=== PATIENT | female | born 1965 | race Caucasian/White ===

== ENCOUNTER 2021-11-27 17:18 | Emergency (ER) | payer SELFPAY ==
[~2021-11-27] VITALS: Ht 170.2 cm; Wt 129.3 kg
[~2021-11-27 17:18] MED LIST: ALB0.5V; KETO-22 PO; LEVO500T69 PO
[2021-11-27] MEDS ORDERED: LACTATED RINGERS 1,000 ML IV ONE (17:25)
[2021-11-27] MEDS ORDERED: ONDANSETRON 4 MG/2 ML (SDV) Z0FRAN ONE (17:25)
[2021-11-27] MEDS ORDERED: LACTATED RINGERS 1,000 ML IV STA (17:27)
[2021-11-27] MEDS ORDERED: ONDANSETRON 4 MG/2 ML (SDV) Z0FRAN IVP ONE (17:30)
[2021-11-27 17:35] LABS: BASOPHILS # (AUTO) 0.1 10^3/uL (0.0-0.1); BASOPHILS % (AUTO) 1 % (0-10); EOSINOPHILS # (AUTO) 0.1 10^3/uL (0.0-0.3); EOSINOPHILS % (AUTO) 1 % (0-10); HEMATOCRIT 44 % (35-52); HEMOGLOBIN 14.3 g/dL (11.5-16.0); LYMPHOCYTES # (AUTO) 5.8 10^3/uL (1.0-4.0); LYMPHOCYTES % (AUTO) 38 % (12-44); MEAN CORPUSCULAR HEMOGLOBIN 29 pg (25-34); MEAN CORPUSCULAR HGB CONC 32 g/dL (32-36); MEAN CORPUSCULAR VOLUME 90 fL (80-99); MEAN PLATELET VOLUME 10.9 fL (9.0-12.2); MONOCYTES # (AUTO) 0.8 10^3/uL (0.0-1.0); MONOCYTES % (AUTO) 5 % (0-12); NEUTROPHILS # (AUTO) 8.3 10^3/uL (1.8-7.8); NEUTROPHILS % (AUTO) 55 % (42-75); PLATELET COUNT 303 10^3/uL (130-400); WHITE BLOOD COUNT 15.1 10^3/uL (4.3-11.0)
--- NOTE | 2021-11-27 17:35 | ED General ---
General Chief Complaint: Overdose Stated Complaint: OD Nursing Triage Note: PT BROUGHT IN BY [facility] FROM HOME FOR OVERDOSE. PT GIVEN 4MG NARCAN. PT WAS FOUND DOWN BY FAMILY. PT WAS BLUE AND UNRESPONSIVE ON EMS ARRIVAL. PT IS ALERT AND UNAWARE OF WHAT HAPPENED. Source of Information: Patient Exam Limitations: No Limitations (ROMY OGLESBY MD) History of Present Illness Date Seen by Provider: Nov 27, 2021 Time Seen by Provider: 17:19 Initial Comments Here with report of possible overdose. Came from home. Patient was found to be down by family unresponsive. EMS reported that she was blue/purple. They did establish IV as she had agonal respirations and administer 4 mg of Narcan in total and she has woke up. She is sweating currently. She does admit to using cocaine. Another family member of hers was seen today for the very same symptoms and was found to have used cocaine laced with fentanyl likely. She is exhibiting the same signs. She states that she believes she snorted it. Did have an episode of vomiting after arrival here. She is still a bit confused but answering simple questions and following simple commands. Moves all extremities without difficulty. No respiratory distress currently. Timing/Duration: 1/2 Hour Severity: Severe Associated Systoms: Diaphoresis, Nausea/Vomiting, Other (Unresponsiveness responding to Narcan) (ROMY OGLESBY MD) Allergies and Home Medications Allergies Coded Allergies: No Known Drug Allergies (Unverified , 05/25/10) Patient Home Medication List Home Medication List Reviewed: Yes (ROMY OGLESBY MD) Albuterol (Proventil 0.5% Rt) 2.5 Mg/0.5 Ml Nebu, PRN, (Reported) Entered as Reported by: KISHAN SMART on 01/14/10 1122 Ketorolac Tromethamine (Toradol) 10 Mg Tablet, 10 MG PO Q6-8 HOURS PRN Prescribed by: LUCA GAGE on 05/25/10 162 Levofloxacin (Levaquin 500 Mg) 500 Mg Tab, 1 EACH PO DAILY Prescribed by: LUCA GAGE on 05/25/10 162 Review of Systems Review of Systems Constitutional: see HPI; No chills, No fever EENTM: No nose congestion, No throat pain Respiratory: see HPI; No cough Cardiovascular: No chest pain, No edema Gastrointestinal: nausea, vomiting Musculoskeletal: No back pain, No muscle pain Psychiatric/Neurological: Denies Headache, Denies Weakness (ROMY OGLESBY MD) All Other Systems Reviewed Negative Unless Noted: Yes (ROMY OGLESBY MD) Past Juozkyf-Tuhtxv-Dehsmv Hx Patient Social History Tobacco Use?: Yes Tobacco type used: Cigarettes Smoking Status: Current Everyday Smoker Use of E-Cig and/or Vaping dev: No Substance use?: Yes Substance type: Amphetamines, Methamphetamine, Opiates/Opioids Additional substance use comme: COCAINE Alcohol Use?: No Pt feels they are or have been: No (ROMY OGLESBY MD) Past Medical History Surgeries: Yes Section, Gallbladder Respiratory: Yes Asthma Cardiac: Yes Hypertension (ROMY OGLESBY MD) Family Medical History Reviewed Nursing Family Hx (ROMY OGLESBY MD) No Pertinent Family Hx (ROMY OGLESBY MD) Physical Exam Vital Signs Vital Signs - First Documented 11/27/21 17:19 Pulse 123 Resp 20 B/P (MAP) 176/118 (137) Pulse Ox 96 O2 Delivery Room Air (MERARI,LUCA K DO) Vital Signs Capillary Refill : Less Than 3 Seconds (ROMY OGLESBY MD) Height, Weight, BMI Height: '" Weight: lbs. oz. kg; 44.00 BMI Method:Stated General Appearance: Mild Distress (Vomiting, confusion and fear about events), Obese HEENT: PERRL/EOMI, Pharynx Normal Neck: Non Tender, Supple Respiratory: Lungs Clear, Normal Breath Sounds Cardiovascular: No Murmur, Tachycardia Gastrointestinal: Non Tender, Soft Back: Normal Inspection, No CVA Tenderness, No Vertebral Tenderness Extremity: Normal Range of Motion, Non Tender Neurologic/Psychiatric: Alert, Other (Oriented to self and place and has some confusion to situation it appears.) Skin: Diaphoresis, Pallor (ROMY OGLESBY MD) Progress/Results/Core Measures Suspected Sepsis SIRS Temperature: Pulse: 123 Respiratory Rate: 20 Laboratory Tests 11/27/21 17:28: White Blood Count 15.1H Blood Pressure 176 /118 Mean: 137 Laboratory Tests 11/27/21 17:28: Creatinine 0.82, Platelet Count 303, Total Bilirubin 0.5 (ROMY OGLESBY MD) Results/Orders Lab Results Laboratory Tests Test 11/27/21 17:28 11/27/21 18:48 Range/Units White Blood Count 15.1 H 4.3-11.0 10^3/uL Red Blood Count 4.90 3.80-5.11 10^6/uL Hemoglobin 14.3 11.5-16.0 g/dL Hematocrit 44 35-52 % Mean Corpuscular Volume 90 80-99 fL Mean Corpuscular Hemoglobin 29 25-34 pg Mean Corpuscular Hemoglobin Concent 32 32-36 g/dL Red Cell Distribution Width 13.8 10.0-14.5 % Platelet Count 303 130-400 10^3/uL Mean Platelet Volume 10.9 9.0-12.2 fL Immature Granulocyte % (Auto) 0 % Neutrophils (%) (Auto) 55 42-75 % Lymphocytes (%) (Auto) 38 12-44 % Monocytes (%) (Auto) 5 0-12 % Eosinophils (%) (Auto) 1 0-10 % Basophils (%) (Auto) 1 0-10 % Neutrophils # (Auto) 8.3 H 1.8-7.8 10^3/uL Lymphocytes # (Auto) 5.8 H 1.0-4.0 10^3/uL Monocytes # (Auto) 0.8 0.0-1.0 10^3/uL Eosinophils # (Auto) 0.1 0.0-0.3 10^3/uL Basophils # (Auto) 0.1 0.0-0.1 10^3/uL Immature Granulocyte # (Auto) 0.1 0.0-0.1 10^3/uL Neutrophils % (Manual) 55 % Lymphocytes % (Manual) 39 % Monocytes % (Manual) 5 % Eosinophils % (Manual) 1 % Blood Morphology Comment NORMAL Sodium Level 139 135-145 MMOL/L Potassium Level 3.9 3.6-5.0 MMOL/L Chloride Level 106 98-107 MMOL/L Carbon Dioxide Level 20 L 21-32 MMOL/L Anion Gap 13 5-14 MMOL/L Blood Urea Nitrogen 12 7-18 MG/DL Creatinine 0.82 0.60-1.30 MG/DL Estimat Glomerular Filtration Rate 85 BUN/Creatinine Ratio 15 Glucose Level 165 H 70-105 MG/DL Calcium Level 9.8 8.5-10.1 MG/DL Corrected Calcium 9.6 8.5-10.1 MG/DL Magnesium Level 2.0 1.6-2.4 MG/DL Total Bilirubin 0.5 0.1-1.0 MG/DL Aspartate Amino Transf (AST/SGOT) 21 5-34 U/L Alanine Aminotransferase (ALT/SGPT) 27 0-55 U/L Alkaline Phosphatase 61 40-136 U/L Troponin I < 0.028 <0.028 NG/ML Total Protein 7.6 6.4-8.2 GM/DL Albumin 4.3 3.2-4.5 GM/DL Salicylates Level < 5.0 L 5.0-20.0 MG/DL Acetaminophen Level < 10 L 10-30 UG/ML Serum Alcohol < 10 <10 MG/DL Urine Color YELLOW Urine Clarity CLEAR Urine pH 6.0 5-9 Urine Specific [place] 1.025 H 1.016-1.022 Urine Protein 2+ H NEGATIVE Urine Glucose (UA) NEGATIVE NEGATIVE Urine Ketones NEGATIVE NEGATIVE Urine Nitrite NEGATIVE NEGATIVE Urine Bilirubin NEGATIVE NEGATIVE Urine Urobilinogen 0.2 < = 1.0 MG/DL Urine Leukocyte Esterase NEGATIVE NEGATIVE Urine RBC (Auto) TRACE-I H NEGATIVE Urine RBC 0-2 /HPF Urine WBC RARE /HPF Urine Crystals NONE /LPF Urine Bacteria TRACE /HPF Urine Casts NONE /LPF Urine Mucus SMALL H /LPF Urine Culture Indicated NO Urine Opiates Screen NEGATIVE NEGATIVE Urine Oxycodone Screen NEGATIVE NEGATIVE Urine Methadone Screen NEGATIVE NEGATIVE Urine Propoxyphene Screen NEGATIVE NEGATIVE Urine Barbiturates Screen NEGATIVE NEGATIVE Ur Tricyclic Antidepressants Screen NEGATIVE NEGATIVE Urine Phencyclidine Screen NEGATIVE NEGATIVE Urine Amphetamines Screen POSITIVE H NEGATIVE Urine Methamphetamines Screen POSITIVE H NEGATIVE Urine Benzodiazepines Screen NEGATIVE NEGATIVE Urine Cocaine Screen NEGATIVE NEGATIVE Urine Cannabinoids Screen NEGATIVE NEGATIVE (LUCA GAGE DO) My Orders Orders - LUCA GAGE DO Ed Iv/Invasive Line Start (11/27/21 18:18) Ns Iv 1000 Ml (Sodium Chloride 0.9%) (11/27/21 18:30) (LUCA GAGE DO) Medications Given in ED Current Medications Medications Dose Ordered Sig/Kianna Route Start Time Stop Time Status Last Admin Dose Admin Ondansetron HCl 4 mg ONCE ONCE IVP 11/27/21 17:30 11/27/21 17:31 DC 11/27/21 17:28 4 MG (LUCA GAGE DO) Vital Signs/I&O 11/27/21 11/27/21 17:19 20:11 Pulse 123 93 Resp 20 20 B/P (MAP) 176/118 (137) 170/100 Pulse Ox 96 97 O2 Delivery Room Air Room Air (LUCA GGAE DO) Vital Signs/I&O Capillary Refill : Less Than 3 Seconds (ROMY OGLESBY MD) Blood Pressure Mean: 137 Progress Note : Progress Note Seen and evaluated. IV by EMS. LR 1 L bolus, Zofran 4 mg IV, labs and EKG ordered including UA and UDS. Does have appearance of narcotic overdose and will need monitoring. Monitor patient. 175: Care transferred to Dr. Gage pending labs. (ROMY OGLESBY MD) Progress Note : Progress Note 1800--ASSUMED CARE OF PT AT SHIFT CHANGE. PT IS RESTING QUIETLY AT THIS TIME, HAS NO COMPLAINTS. VITALS STABLE. 1944--PT CONTINUES TO REST QUIETLY, HAS NO COMPLAINTS AT THIS TIME. VITALS STABLE., PT HAS BEEN UP TO BEDSIDE COMMODE AND BACK ONTO ER CART WITHOUT DIFFICULTY. (LUCA GAGE DO) ECG Initial ECG Impression Date: Nov 27, 2021 Initial ECG Impression Time: 17:32 Initial ECG Rate: 102 Initial ECG Rhythm: S.Tach Comment Sinus rhythm with normal axis. No evidence of ST elevation [place]. No previous available for comparison. Interpreted by me. (ROMY OGLESBY MD) Departure Impression Primary Impression: Drug overdose Additional Impression: Illicit drug use Disposition: 01 HOME, SELF-CARE Condition: Stable Departure-Patient Inst. Decision time for Depature: 20:00 (LUCA GAGE DO) Referrals: UNKNOWN (PCP/Family) Primary Care Physician Patient Instructions: ALCOHOL AND SUBSTANCE ABUSE, Drug Abuse and Drug Addiction (DC), Drug Abuse Treatment Add. Discharge Instructions: NO DRUGS!!!! FOLLOW UP WITH YOUR DR NEXT WEEK FOR FURTHER CARE ENCOURAGE YOU TO SEEK DRUG ABUSE TREATMENT--FACILITIES ARE LISTED IN YOUR DISCHARGE INSTRUCTIONS All discharge instructions reviewed with patient and/or family. Voiced understanding. ROMY OGLESBY MD Nov 27, 2021 17:35 LUCA GAGE DO Nov 27, 2021 18:18
[2021-11-27 17:43] LABS: CHLORIDE 106 MMOL/L (98-107); POTASSIUM 3.9 MMOL/L (3.6-5.0); SODIUM 139 MMOL/L (135-145)
[2021-11-27 17:44] LABS: ALBUMIN 4.3 GM/DL (3.2-4.5)
[2021-11-27 17:45] LABS: CALCIUM 9.8 MG/DL (8.5-10.1)
[2021-11-27 17:46] LABS: GLUCOSE 165 MG/DL (70-105); TOTAL PROTEIN 7.6 GM/DL (6.4-8.2)
[2021-11-27 17:47] LABS: CARBON DIOXIDE 20 MMOL/L (21-32)
[2021-11-27 17:48] LABS: BILIRUBIN,TOTAL 0.5 MG/DL (0.1-1.0)
[2021-11-27 17:50] LABS: ALKALINE PHOSPHATASE 61 U/L (40-136); CREATININE SERUM 0.82 MG/DL (0.60-1.30); GFR ESTIMATED 85
[2021-11-27 17:51] LABS: BUN/CREATININE RATIO 15
[2021-11-27 17:52] LABS: ACETAMINOPHEN < 10 UG/ML (10-30)
[2021-11-27 17:53] LABS: ALANINE AMINOTRANSFERASE 27 U/L (0-55); SALICYLATE < 5.0 MG/DL (5.0-20.0)
[2021-11-27 18:00] LABS: EOSINOPHILS % (MANUAL) 1 %; LYMPHOCYTES % (MANUAL) 39 %; MONOCYTES % (MANUAL) 5 %; NEUTROPHILS % (MANUAL) 55 %; RBC MORPH NORMAL
[2021-11-27] MEDS ORDERED: NS IV 1000 ML 1,000 ML IV SCH (18:30)
[2021-11-27 18:56] LABS: BILIRUBIN,URINE NEGATIVE (NEGATIVE); CLARITY,URINE CLEAR; COLOR,URINE YELLOW; GLUCOSE, URINE (UA) NEGATIVE (NEGATIVE); KETONES,URINE NEGATIVE (NEGATIVE); LEUKOCYTE ESTERASE ,URINE NEGATIVE (NEGATIVE); NITRITE,URINE NEGATIVE (NEGATIVE); PROTEIN,URINE 2+ (NEGATIVE)
[2021-11-27 19:16] LABS: BACTERIA,URINE TRACE /HPF; RBC,URINE 0-2 /HPF; WBC,URINE RARE /HPF
[2021-11-27 19:18] LABS: AMPHETAMINE SCREEN, URINE POSITIVE (NEGATIVE); BARBITURATE SCREEN URINE NEGATIVE (NEGATIVE); BENZODIAZEPINES SCREEN URINE NEGATIVE (NEGATIVE); CANNABINOID SCREEN, URINE NEGATIVE (NEGATIVE); COCAINE SCREEN URINE NEGATIVE (NEGATIVE); METHADONE STAT NEGATIVE (NEGATIVE); METHAMPHETAMINE SCREEN URINE S POSITIVE (NEGATIVE); OPIATE SCREEN URINE NEGATIVE (NEGATIVE); OXYCODONE STAT NEGATIVE (NEGATIVE); PROPOXYPHENE STAT NEGATIVE (NEGATIVE); TRICYCLIC ANTIDEPRESSANTS SCRE NEGATIVE (NEGATIVE)
[2021-11-27 20:11] VITALS: BP 170/100
== END 2021-11-27 20:11 | disposition home or self-care (01) ==
LOC: EDUNIT# 17:18 → ER 17:18
DX: T50.7X1A Poisoning by analeptics and opioid receptor antagonists, accidental (unintentional), initial encounter (principal); F14.90 Cocaine use, unspecified, uncomplicated; E66.9 Obesity, unspecified; F17.210 Nicotine dependence, cigarettes, uncomplicated
CPT/HCPCS: 80053; 80306; 81000; 83735; 84484; 85007; 85027; 93041; 99284; G0480 ×3; 36415; 80320; 80329; 93005

== ENCOUNTER 2022-05-15 04:33 | Inpatient (IN) | payer SELFPAY ==
[~2022-05-15] VITALS: Ht 170 cm; Wt 120.2 kg
[~2022-05-15 04:33] MED LIST changes: -ALB0.5V; +ALB0.5V IH
[2022-05-15 04:40] VITALS: BP 130/92
--- NOTE | 2022-05-15 04:42 | ED General ---
General Stated Complaint: OD History of Present Illness Date Seen by Provider: May 15, 2022 Time Seen by Provider: 04:32 Initial Comments 26-year-old female is brought in by EMS with complaints of meth usage and prazosin overdose. Patient has a prescription from her PCP for results and 2 mg daily, and was dispensed approximately 360 tablets. Patient states that she took injected meth and then wanted something to help her sleep, and since she took 2 or 3 handfuls of prazosin. She is unsure exactly how much. Patient is alert and oriented x3 and able to converse and follow commands without any issues. Patient's mouth is green from the prazosin tablets. Denies dizziness, chest pain, palpitations, abdominal pain, nausea and vomiting. Patient is denying suicidal ideation. Allergies and Home Medications Allergies Coded Allergies: No Known Drug Allergies (Unverified , 05/25/10) Patient Home Medication List Home Medication List Reviewed: Yes Albuterol (Proventil 0.5% Rt) 2.5 Mg/0.5 Ml Nebu, PRN, (Reported) Entered as Reported by: KISHAN SMART on 01/14/10 1122 Ketorolac Tromethamine (Toradol) 10 Mg Tablet, 10 MG PO Q6-8 HOURS PRN Prescribed by: LUCA GAGE on 05/25/10 1620 Levofloxacin (Levaquin 500 Mg) 500 Mg Tab, 1 EACH PO DAILY Prescribed by: LUCA GAGE on 05/25/10 1620 Review of Systems Review of Systems Constitutional: no symptoms reported EENTM: no symptoms reported Respiratory: no symptoms reported Cardiovascular: no symptoms reported Gastrointestinal: no symptoms reported Genitourinary: no symptoms reported Musculoskeletal: no symptoms reported Skin: other (green color to mouth and lips from green prazosin) Psychiatric/Neurological: Emotional Problems, Other (drug abuse and overdose, and possible suicidal ideation) Hematologic/Lymphatic: No Symptoms Reported Immunological/Allergic: no symptoms reported Physical Exam Vital Signs Capillary Refill : Height, Weight, BMI Height: '" Weight: lbs. oz. kg; BMI Method: General Appearance: No Apparent Distress, Obese HEENT: PERRL/EOMI Neck: Full Range of Motion, Normal Inspection Respiratory: Chest Non Tender, Lungs Clear, Normal Breath Sounds, No Accessory Muscle Use, No Respiratory Distress Cardiovascular: Regular Rate, Rhythm Gastrointestinal: Normal Bowel Sounds, Non Tender, Soft Extremity: Normal Inspection Neurologic/Psychiatric: Alert, Oriented x3, No Motor/Sensory Deficits Skin: Normal Color Progress/Results/Core Measures Suspected Sepsis SIRS Temperature: Pulse: Respiratory Rate: Laboratory Tests 05/15/22 04:52: White Blood Count 6.8 Blood Pressure / Mean: Laboratory Tests 05/15/22 04:52: Creatinine 0.83, Platelet Count 242, Total Bilirubin 0.9 Results/Orders Lab Results Laboratory Tests Test 05/15/22 04:52 Range/Units White Blood Count 6.8 4.3-11.0 10^3/uL Red Blood Count 4.62 3.80-5.11 10^6/uL Hemoglobin 14.0 11.5-16.0 g/dL Hematocrit 42 35-52 % Mean Corpuscular Volume 90 80-99 fL Mean Corpuscular Hemoglobin 30 25-34 pg Mean Corpuscular Hemoglobin Concent 34 32-36 g/dL Red Cell Distribution Width 13.1 10.0-14.5 % Platelet Count 242 130-400 10^3/uL Mean Platelet Volume 10.9 9.0-12.2 fL Immature Granulocyte % (Auto) 0 % Neutrophils (%) (Auto) 56 42-75 % Lymphocytes (%) (Auto) 32 12-44 % Monocytes (%) (Auto) 8 0-12 % Eosinophils (%) (Auto) 3 0-10 % Basophils (%) (Auto) 1 0-10 % Neutrophils # (Auto) 3.8 1.8-7.8 10^3/uL Lymphocytes # (Auto) 2.2 1.0-4.0 10^3/uL Monocytes # (Auto) 0.6 0.0-1.0 10^3/uL Eosinophils # (Auto) 0.2 0.0-0.3 10^3/uL Basophils # (Auto) 0.0 0.0-0.1 10^3/uL Immature Granulocyte # (Auto) 0.0 0.0-0.1 10^3/uL Urine Color YELLOW Urine Clarity CLOUDY Urine pH 5.5 5-9 Urine Specific [place] >=1.030 1.016-1.022 Urine Protein TRACE H NEGATIVE Urine Glucose (UA) NEGATIVE NEGATIVE Urine Ketones NEGATIVE NEGATIVE Urine Nitrite NEGATIVE NEGATIVE Urine Bilirubin NEGATIVE NEGATIVE Urine Urobilinogen 0.2 < = 1.0 MG/DL Urine Leukocyte Esterase 1+ H NEGATIVE Urine RBC (Auto) TRACE-I H NEGATIVE Urine RBC NONE /HPF Urine WBC 25-50 H /HPF Urine Squamous Epithelial Cells >50 H /HPF Urine Crystals NONE /LPF Urine Bacteria LARGE H /HPF Urine Casts NONE /LPF Urine Mucus NEGATIVE /LPF Urine Culture Indicated YES Sodium Level 141 135-145 MMOL/L Potassium Level 4.0 3.6-5.0 MMOL/L Chloride Level 103 98-107 MMOL/L Carbon Dioxide Level 24 21-32 MMOL/L Anion Gap 14 5-14 MMOL/L Blood Urea Nitrogen 9 7-18 MG/DL Creatinine 0.83 0.60-1.30 MG/DL Estimat Glomerular Filtration Rate 83 BUN/Creatinine Ratio 11 Glucose Level 146 H 70-105 MG/DL Calcium Level 9.4 8.5-10.1 MG/DL Corrected Calcium 9.2 8.5-10.1 MG/DL Magnesium Level 1.6 1.6-2.4 MG/DL Total Bilirubin 0.9 0.1-1.0 MG/DL Aspartate Amino Transf (AST/SGOT) 19 5-34 U/L Alanine Aminotransferase (ALT/SGPT) 23 0-55 U/L Alkaline Phosphatase 65 40-136 U/L Total Creatine Kinase 258 H 29-168 U/L Total Protein 7.6 6.4-8.2 GM/DL Albumin 4.2 3.2-4.5 GM/DL Urine Opiates Screen NEGATIVE NEGATIVE Urine Oxycodone Screen NEGATIVE NEGATIVE Urine Methadone Screen NEGATIVE NEGATIVE Urine Propoxyphene Screen NEGATIVE NEGATIVE Urine Barbiturates Screen NEGATIVE NEGATIVE Ur Tricyclic Antidepressants Screen NEGATIVE NEGATIVE Urine Phencyclidine Screen NEGATIVE NEGATIVE Urine Amphetamines Screen POSITIVE H NEGATIVE Urine Methamphetamines Screen POSITIVE H NEGATIVE Urine Benzodiazepines Screen NEGATIVE NEGATIVE Urine Cocaine Screen NEGATIVE NEGATIVE Urine Cannabinoids Screen POSITIVE H NEGATIVE Serum Alcohol < 10 <10 MG/DL My Orders Orders - MURALI SNEED MD Ed Iv/Invasive Line Start (05/15/22 04:46) Ekg Tracing (05/15/22 04:46) Monitor-Rhythm Ecg Trace Only (05/15/22 04:46) Charcoal Activated Aqueous (Actidose Aqu (05/15/22 05:00) Ondansetron Injection (Zofran Injectio (05/15/22 05:00) Acetaminophen (05/15/22 04:49) Alcohol (05/15/22 04:49) Cbc With Automated Diff (05/15/22 04:49) Comprehensive Metabolic Panel (05/15/22 04:49) Creatine Kinase (05/15/22 04:49) Drug Screen Stat (Urine) (05/15/22 04:49) Magnesium (05/15/22 04:49) Salicylate (05/15/22 04:49) Ua Culture If Indicated (05/15/22 04:49) Ed Iv/Invasive Line Start (05/15/22 04:50) Ns Iv 1000 Ml (Sodium Chloride 0.9%) (05/15/22 04:50) Urine Culture (05/15/22 04:52) Ed Admission (Communication) (05/15/22 05:32) Medications Given in ED Current Medications Medications Dose Ordered Sig/Kianna Route Start Time Stop Time Status Last Admin Dose Admin Charcoal 50 gm ONCE ONCE PO 05/15/22 05:00 05/15/22 05:01 DC 05/15/22 05:15 50 GM Ondansetron HCl 4 mg ONCE ONCE IVP 05/15/22 05:00 05/15/22 05:01 DC 05/15/22 05:19 4 MG Vital Signs/I&O Capillary Refill : Progress Note : Progress Note 1. PRAZOSIN OVERDOSE: - EKG NSR, unremarkable - Bottle contains 65 tablets , ut pt states there are 2 other bottles of Prazo - Labs: unremarkable - Discussed with Poison ControlRosalinda, and advised activated charcoal if alert and awake, monitoring for hypotension and neurological status, and EKG changes and treating accordingly - Activated charcoal given in ER - NS IVF - WIll admit to ICU for E-ICU consult 2. METHAMPHETAMINE & MARIJUANA ABUSE: - UDS: positive for methamphetamine and marijuana - s. acetaminophen/ salicylates: neg 3. ACUTE CYSTITIS WITH HEMATURIA: - UA is positive for leukocyte esterase, RBCs, bacteria, WBC -Ceftriaxone 1 g IV stat Departure Communication (Admissions) Time/Spoke to Admitting Phy: 00:[address] Mckinney and admit to ICU Time/Spoke to Consulting Phy: 00:35 Informed E-ICU Impression Primary Impression: Drug overdose Qualified Codes: T50.904A - Poisoning by unspecified drugs, medicaments and biological substances, undetermined, initial encounter Additional Impressions: Methamphetamine abuse Marijuana abuse Acute cystitis with hematuria Disposition: 30 STILL A PATIENT Condition: Stable Admissions Decision to Admit Reason: Admit from ER (General) Decision to Admit/Date: May 15, 2022 Time/Decision to Admit Time: 00:15 MURALI SNEED MD May 15, 2022 04:41
[2022-05-15] MEDS ORDERED: NS IV 1000 ML 1,000 ML IV STA (04:50)
[2022-05-15 04:58] LABS: BASOPHILS % (AUTO) 1 % (0-10); EOSINOPHILS # (AUTO) 0.2 10^3/uL (0.0-0.3); EOSINOPHILS % (AUTO) 3 % (0-10); HEMATOCRIT 42 % (35-52); LYMPHOCYTES # (AUTO) 2.2 10^3/uL (1.0-4.0); LYMPHOCYTES % (AUTO) 32 % (12-44); MEAN CORPUSCULAR HEMOGLOBIN 30 pg (25-34); MEAN CORPUSCULAR HGB CONC 34 g/dL (32-36); MEAN CORPUSCULAR VOLUME 90 fL (80-99); MEAN PLATELET VOLUME 10.9 fL (9.0-12.2); MONOCYTES # (AUTO) 0.6 10^3/uL (0.0-1.0); MONOCYTES % (AUTO) 8 % (0-12); NEUTROPHILS # (AUTO) 3.8 10^3/uL (1.8-7.8); NEUTROPHILS % (AUTO) 56 % (42-75); PLATELET COUNT 242 10^3/uL (130-400); WHITE BLOOD COUNT 6.8 10^3/uL (4.3-11.0)
[2022-05-15 04:59] LABS: BILIRUBIN,URINE NEGATIVE (NEGATIVE); CLARITY,URINE CLOUDY; COLOR,URINE YELLOW; GLUCOSE, URINE (UA) NEGATIVE (NEGATIVE); KETONES,URINE NEGATIVE (NEGATIVE); LEUKOCYTE ESTERASE ,URINE 1+ (NEGATIVE); NITRITE,URINE NEGATIVE (NEGATIVE); PH,URINE 5.5 (5-9); PROTEIN,URINE TRACE (NEGATIVE)
[2022-05-15] MEDS ORDERED: ONDANSETRON 4 MG/2 ML (SDV) Z0FRAN IVP ONE (05:00)
[2022-05-15] MEDS ORDERED: CHARCOAL/AQUEOUS 50 GM/240 ML BTL PO ONE (05:00)
[2022-05-15 05:09] LABS: ALBUMIN 4.2 GM/DL (3.2-4.5); CHLORIDE 103 MMOL/L (98-107); SODIUM 141 MMOL/L (135-145)
[2022-05-15 05:11] LABS: CALCIUM 9.4 MG/DL (8.5-10.1)
[2022-05-15 05:12] LABS: GLUCOSE 146 MG/DL (70-105); TOTAL PROTEIN 7.6 GM/DL (6.4-8.2)
[2022-05-15 05:13] LABS: CARBON DIOXIDE 24 MMOL/L (21-32)
[2022-05-15 05:14] LABS: BILIRUBIN,TOTAL 0.9 MG/DL (0.1-1.0)
[2022-05-15 05:16] LABS: ALKALINE PHOSPHATASE 65 U/L (40-136); AMPHETAMINE SCREEN, URINE POSITIVE (NEGATIVE); BARBITURATE SCREEN URINE NEGATIVE (NEGATIVE); BENZODIAZEPINES SCREEN URINE NEGATIVE (NEGATIVE); CANNABINOID SCREEN, URINE POSITIVE (NEGATIVE); COCAINE SCREEN URINE NEGATIVE (NEGATIVE); CREATININE SERUM 0.83 MG/DL (0.60-1.30); GFR ESTIMATED 83; METHADONE STAT NEGATIVE (NEGATIVE); OPIATE SCREEN URINE NEGATIVE (NEGATIVE); OXYCODONE STAT NEGATIVE (NEGATIVE); PROPOXYPHENE STAT NEGATIVE (NEGATIVE); TRICYCLIC ANTIDEPRESSANTS SCRE NEGATIVE (NEGATIVE)
[2022-05-15 05:17] LABS: BACTERIA,URINE LARGE /HPF; BUN/CREATININE RATIO 11; SQUAMOUS EPITHELIAL CELL,UR >50 /HPF; WBC,URINE 25-50 /HPF
[2022-05-15 05:18] LABS: SALICYLATE < 5.0 MG/DL (5.0-20.0)
[2022-05-15 05:19] LABS: ALANINE AMINOTRANSFERASE 23 U/L (0-55); CREATINE KINASE 258 U/L (29-168); MAGNESIUM 1.6 MG/DL (1.6-2.4)
[2022-05-15 05:38] LABS: ACETAMINOPHEN < 10 UG/ML (10-30)
[2022-05-15] MEDS ORDERED: cefTRIAXone 1 GM PRE-MIX 50 ML IV STA (05:40)
[2022-05-15] MEDS ORDERED: cefTRIAXone 1 GM PRE-MIX 50 ML IV ONE (05:49)
--- NOTE | 2022-05-15 09:17 | History & Physical-Hospitalist ---
History of Present Illness HPI/Chief Complaint Patient is a 56-year-old female with a past medical history of methamphetamine abuse and mental health disorders who presented to the emergency department due to an overdose. She reports that she used meth and then wanted to fall asleep so took 3 or 4 handfuls of prazosin. She states that she is prescribed this by Dr. Lozano at [facility] and had recently been prescribed 360 tabs. sHE thinks she took 3 or 4 handful totaling maybe 50 or 60 pills. When asked why she took this she stated she just wanted to go to sleep. When asked if she was trying to harm herself she said no but when asked if she was hoping to wake up she just shrugged and said she did not care if she woke up. When asked why she came to the hospital she states she called her ex who was concerned for her and he brought her to the emergency room for evaluation. Source: patient Exam Limitations: clinical condition Date Seen 05/15/22 Time Seen by a Provider: 09:17 Attending Physician No,Local Physician PCP Admitting Physician: Erendira Mckinney MD Attending Physician: Erendira Mckinney MD Referring Physician Date of Admission May 15, 2022 at 05:32 Home Medications & Allergies Home Medications Reviewed patient Home Medication Reconciliation performed by pharmacy medication reconciliations electro mechanical solar technician and/or nursing. Patients Allergies have been reviewed. Allergies Allergies Coded Allergies No Known Drug Allergies (Unverified05/25/10) Past Tjovnam-Zasdtz-Wqfbnm Hx Patient Social History Tobacco Use?: Yes Smoking Status: Current Someday Smoker Substance use?: Yes Substance type: Methamphetamine, Nicotine, Misuse of prescript meds, Marijuana Substance frequency: Several times a month Alcohol Use?: Yes Alcohol type: Hard Liquor, Wine Alcohol Frequency: Rarely Pt feels they are or have been: No Immunizations Up To Date Tetanus Booster (TDap): Unknown Current Status status: No Advance Directives: No Communicates: Verbally Primary Language: Azeri Preferred Spoken Language: Azeri Is interpretation needed?: No Sensory deficits: Vision impairment Implanted or Applied Medical D: None Past Medical History Surgeries: Section, Gallbladder Asthma Hypertension Family Medical History Reviewed Nursing Family Hx No Pertinent Family Hx Review of Systems Constitutional: No chills, No fever EENTM: no symptoms reported Respiratory: no symptoms reported Cardiovascular: no symptoms reported Gastrointestinal: no symptoms reported Genitourinary: no symptoms reported Musculoskeletal: no symptoms reported Skin: no symptoms reported Psychiatric/Neurological: See HPI Physical Exam Physical Exam Vital Signs Vital Signs - First Documented 05/15/22 05/15/22 04:40 07:15 Temp 36.0 Pulse 102 Resp 16 B/P (MAP) 130/92 (105) Pulse Ox 100 O2 Delivery Room Air Capillary Refill : Less Than 3 Seconds Height, Weight, BMI Height: '" Weight: lbs. oz. kg; 41.59 BMI Method:Stated General Appearance: No Apparent Distress, Chronically ill, Obese HEENT: PERRL/EOMI, Moist Mucous Membranes; No Scleral Icterus (L), No Scleral Icterus (R) Neck: Normal Inspection, Supple Respiratory: Lungs Clear, No Accessory Muscle Use, No Respiratory Distress Cardiovascular: Regular Rate, Rhythm, No JVD, No Murmur Gastrointestinal: Normal Bowel Sounds, Non Tender, Soft Extremity: Normal Capillary Refill, No Calf Tenderness, No Pedal Edema Neurologic/Psychiatric: Alert (but drowsy), Oriented x3 Skin: Normal Color, Warm/Dry Results Results/Procedures Labs Laboratory Tests 05/15/22 04:52 Patient resulted labs reviewed. Assessment/Plan Admission Diagnosis Intentional overdose Admission Status: Observation Assessment and Plan Intentional overdose Methamphetamine abuse Poson control contacted by ER Admitted to ICU for monitor telemetry and serial EKGs Replace mag Once medically clear will consult save line for evaluation UTI Rocephin Await cultures Diagnosis/Problems Diagnosis/Problems (1) Drug overdose Status: Acute Qualifiers: Encounter type: initial encounter Injury intent: undetermined intent Qualified Codes: T50.904A - Poisoning by unspecified drugs, medicaments and biological substances, undetermined, initial encounter (2) Acute cystitis with hematuria Status: Acute (3) Methamphetamine abuse Status: Acute (4) Marijuana abuse Status: Acute ERENDIRA MCKINNEY MD May 15, 2022 09:17
[2022-05-15] MEDS: NS IV 1000 ML 1,000 ML IV SCH ×2 (09:29→14:49)
--- NOTE | 2022-05-15 11:20 | Tele-ICU Consult ---
History of Present Illness History of Present Illness Date Seen by Provider: May 15, 2022 Time Seen by Provider: 11:19 Date of Admission (Tele-ICU Physician , consultation) Available chart/ vitals / labs / Images reviewed H&P is from ER notes Patient's information available about PMH, Shx, Fhx allergy reviewed inEMR. ROS as per chart and RN report Now in ICU, hemodynamically stable Video assessment done using teleICU camera, rest of exam as per RN Discussed with RN. Consultants: Hospital course: A/P prazosin overdose ( taken in attempt to help with sleep ) - BP stable - poison control contacted by ER - "monitoring for hypotension and neurological status, and EKG change -acetaminophen/ salicylates: neg - AAO x3 - observation neth use - monitor Possible UTI - as per PCP - on abx Lines : , (Central Line Necessity Reviewed) Martinez: OG: Nutrition: Analgesia: Anxiety/ delirium VTE Prophylaxis: ambulate Stress Ulcer Prophylaxis: NA Glycemic Control: Plans in collaboration with bedside consultants and IM MDs. Discussed with RN to reach out if any questions or concerns A total of 15 minutes of critical care time was devoted to this patient today, required to treat and/or prevent further deterioration of critical care condition ( as above ) Allergies and Home Medications Allergies Coded Allergies: No Known Drug Allergies (Unverified , 05/25/10) Home Medications Albuterol 2.5 Mg/0.5 Ml Nebu, PRN, (Reported) Ketorolac Tromethamine 10 Mg Tablet, 10 MG PO Q6-8 HOURS PRN FOR PAIN Prescribed by: LUCA GAGE on 05/25/10 1620 Levofloxacin 500 Mg Tab, 1 EACH PO DAILY FOR INFECTION Prescribed by: LUCA GAGE on 05/25/10 1620 Past Medical/Social/Family Hx Patient Social History Tobacco Use?: Yes Smoking Status: Current Someday Smoker Substance use?: Yes Substance type: Methamphetamine, Nicotine, Misuse of prescript meds, Marijuana Substance frequency: Several times a month Alcohol Use?: Yes Alcohol type: Hard Liquor, Wine Alcohol Frequency: Rarely Pt stated abuse/neglect: No Immunizations Up To Date Influenza Vaccine Up-to-Date: Yes; Up-to-Date Tetanus Booster (TDap): Unknown Current Status status: No Advance Directives: No Communicates: Verbally Primary Language: Occitan Preferred Spoken Language: Occitan Is interpretation needed?: No Sensory deficits: Vision impairment Implanted or Applied Medical D: None Review of Systems Constitutional: see HPI Focused Exam Height, Weight, BMI Height: '" Weight: lbs. oz. kg; 41.59 BMI Method:Stated Exam Exam Patient acknowledged, consented, and participated in this virtual visit which was conducted using real time audio/video Vital Signs Date Time Temp Pulse Resp B/P (MAP) Pulse Ox O2 Delivery O2 Flow Rate FiO2 05/15/22 10:00 83 109/77 (88) 99 Room Air 05/15/22 09:00 80 17 109/73 (85) 93 Room Air 05/15/22 08:15 36.2 05/15/22 08:00 84 10 94/58 (70) 99 Room Air 05/15/22 08:00 35.7 05/15/22 07:54 79 05/15/22 07:30 Room Air 05/15/22 07:15 81 10 116/71 (86) 100 Room Air 05/15/22 04:40 36.0 102 16 130/92 (105) Height & Weight Height: '" Weight: lbs. oz. kg; 41.59 BMI Method:Stated General Appearance: No Apparent Distress, Obese HEENT: PERRL/EOMI Neck: Full Range of Motion, Normal Inspection Respiratory: Chest Non Tender, Lungs Clear, Normal Breath Sounds, No Accessory Muscle Use, No Respiratory Distress Cardiovascular: Regular Rate, Rhythm Capillary Refill: Less Than 3 Seconds Extremity: Normal Inspection Neurologic/Psychiatric: Alert, Oriented x3, No Motor/Sensory Deficits Skin: Normal Color Results Lab Laboratory Tests 05/15/22 04:52 Assessment/Plan Assessment/Plan 1 LEYDI ANDREW MD May 15, 2022 11:20
[2022-05-15] MEDS ORDERED: NS IV 500 ML 500 ML IV PRN (11:45)
[2022-05-15] MEDS: MAGNESIUM 1 GM/100 ML IVPB 100 ML IV SCH ×2 (12:16→13:13)
[2022-05-15] MEDS ORDERED: PRAZ1CAP2 PO (14:53)
[2022-05-15] MEDS ORDERED: GBPN600T PO (14:53)
[2022-05-15] MEDS ORDERED: FLUO20CA42 PO (14:53)
[2022-05-15] MEDS ORDERED: DOCUSATE SODIUM 100 MG (COLACE) CAP PO PRN (15:30)
[2022-05-15] MEDS ORDERED: CEPH500T PO ×2 (18:15→18:18)
[2022-05-16] MEDS ORDERED: MAGNESIUM 1 GM/100 ML IVPB 100 ML IV SCH (06:00)
[2022-05-16] MEDS ORDERED: POTASSIUM CL 10MEQ/50ML IVPB 50 ML IV SCH (06:00)
[2022-05-16] MEDS ORDERED: KCL 20 MEQ TAB (K-DUR) PO SCH (06:00)
[2022-05-16] MEDS ORDERED: cefTRIAXone 1 GM PRE-MIX 50 ML IV SCH (09:00)
== END 2022-05-15 19:00 | disposition home or self-care (01) | DRG 918 ==
LOC: EDUNIT# 04:33 → ER 04:41 → EDLOC 05:32 → ICU 05:32
PROVIDERS: ADMIT Family Medicine; ATTEND Family Medicine
DX: T44.6X2A Poisoning by alpha-adrenoreceptor antagonists, intentional self-harm, initial encounter (principal); N30.01 Acute cystitis with hematuria; F15.10 Other stimulant abuse, uncomplicated; F12.10 Cannabis abuse, uncomplicated; F17.200 Nicotine dependence, unspecified, uncomplicated; J45.909 Unspecified asthma, uncomplicated; I10 Essential (primary) hypertension; H54.7 Unspecified visual loss
CPT/HCPCS: 36415; 80053; 80306; 80320; 80329; 81000; 82550; 83735; 85025; 87077; 87081; 87088; 87186; 93005; 93041